=== PATIENT | female | born 1955 | race American Indian/Alaskan Native ===

== ENCOUNTER 2018-11-22 14:00 | Outpatient (CLI) | payer MEDICARE ==
--- NOTE | 2018-11-22 15:29 | Cat Scan Report ---
CT abdomen and pelvis with contrast: Renal calculus. Transverse images were obtained the low chest to the ischium with sagittal and coronal reconstructed images. Imaging of the lung bases demonstrates areas of scar or atelectasis bilaterally. There is dense calcium in the right hilum. Several right pulmonary calcified nodules are present. There is heavy calcification in the left coronary arteries. The gallbladder has been resected. Scattered calcifications are present in the spleen. The adrenal glands and pancreas are normal. The right kidney is unremarkable. There is a grouping of approximately 3 calcifications in the periphery of the mid lateral left kidney the largest measuring 4.3 mm. In the lateral mid kidney there is a 17 mm hypoechoic mass with densities are consistent with a cyst. No evidence of obstruction. The unopacified bowel is only remarkable in that there are some scattered noninflammatory-appearing small diverticula involving the descending colon. The appendix is identified and is unremarkable. The mesentery appears normal. There is a wide umbilical hernia apparently stabilized with a mesh. Diffuse degenerative bone and discogenic changes are noted throughout the lower thoracic and lumbar spine. Impressions: 1. Small nonobstructing left renal calculi and left renal cyst. 2. 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 3. Stabilized large umbilical hernia. 4. Coronary vascular calcification.
== END 2018-11-22 14:01 | disposition home or self-care (01) ==
LOC: CT 14:00
PROVIDERS: ATTEND Urology
DX: N20.0 Calculus of kidney (principal); K42.9 Umbilical hernia without obstruction or gangrene; L92.9 Granulomatous disorder of the skin and subcutaneous tissue, unspecified; I25.10 Atherosclerotic heart disease of native coronary artery without angina pectoris; I11.0 Hypertensive heart disease with heart failure; I50.9 Heart failure, unspecified; E78.00 Pure hypercholesterolemia, unspecified; K21.9 Gastro-esophageal reflux disease without esophagitis; E11.9 Type 2 diabetes mellitus without complications; J45.909 Unspecified asthma, uncomplicated; E03.9 Hypothyroidism, unspecified; Z90.89 Acquired absence of other organs; Z90.710 Acquired absence of both cervix and uterus
CPT/HCPCS: 74176

== ENCOUNTER 2019-01-16 14:08 | Outpatient (CLI) | payer MEDICARE ==
--- NOTE | 2019-01-16 14:58 | Mammography Report ---
BILATERAL DIGITAL SCREENING MAMMOGRAM WITH CAD INDICATION: Routine screening mammography. TECHNIQUE: Digital bilateral 2D mammography was obtained in the craniocaudal and mediolateral obliq ue projections. This examination was interpreted with the benefit of Computer-Aided Detection analysi s. COMPARISON: 02/05/2015 FINDINGS: Breast Density: The breasts are almost entirely fatty. There is no evidence of dominant mass, suspicious calcifications or architectural distortion in eith er breast. Scattered bilateral benign calcifications. IMPRESSION:No mammographic evidence of malignancy. BI-RADS Category 2: Benign. No mammographic evidence of malignancy. Recommend routine screening ma mmography in one year. A "normal" or negative report should not discourage follow up or biopsy of a clinically significant f inding. A written summary of these findings will be mailed to the patient. The patient will be entered into a mammography reporting system which will generate a reminder letter for the patient's next appointmen t at the appropriate interval. The [employer] recommends yearly mammograms starting at age 40 and continuing as l cecilia as a woman is in good health. Breast MRI is recommended for women with an approximate 20-25% or greater lifetime risk of breast cancer, including women with a strong family history of breast or ova kymberly cancer or who have been treated for Hodgkin's disease. Signer Name: Harpreet Perez MD Signed: 01/16/2019 2:54 PM Workstation Name: [id number]
== END 2019-01-16 14:09 | disposition home or self-care (01) ==
LOC: SPVWC 14:08
PROVIDERS: ATTEND Family Medicine
DX: Z12.31 Encounter for screening mammogram for malignant neoplasm of breast (principal); I11.0 Hypertensive heart disease with heart failure; I50.9 Heart failure, unspecified; K21.9 Gastro-esophageal reflux disease without esophagitis; E11.9 Type 2 diabetes mellitus without complications; E03.9 Hypothyroidism, unspecified; Z90.710 Acquired absence of both cervix and uterus
CPT/HCPCS: 77067